=== PATIENT | male | born 1990 | race Caucasian/White ===

== ENCOUNTER 2017-06-27 07:14 | Emergency (ER) | payer MEDICAID ==
[~2017-06-27] VITALS: Ht 182.9 cm; Wt 94.8 kg
[2017-06-27 07:21] VITALS: BP 149/80
== END 2017-06-27 08:17 | disposition home or self-care (01) ==
LOC: ED 08:16
DX: J02.0 Streptococcal pharyngitis (principal)
CPT/HCPCS: 99283